=== PATIENT | male | born 1940 | race Caucasian/White ===

== ENCOUNTER → 2016-09-11 | Outpatient (CLI) | payer MEDICARE, OTHER ==
[~2016-09-11] MED LIST: DIABETA 5 MG TAB5 MG PO; GLUCOTROL5 MG PO; LEVOTHYROXINE75 MCG PO; NORCO 10-325 T1 EACH PO; NORVASC 5 MG TAB5 MG PO; OMEPRAZOLE20 MG PO; SIMVASTATIN10 MG PO; ZYRTEC10 M3 PO; [UNRECOGNIZED DRUG - OTHER] PO
[2016-09-11 11:55] LABS: HEMOGLOBIN 12.6 gm/dl (14.0-17.5); RED BLOOD COUNT 4.54 M/UL (4.20-5.50); WHITE BLOOD COUNT 6.5 K/UL (4.5-11.0)
== END ==
LOC: OPSV2 10:29
PROVIDERS: Orthopaedic Surgery
DX: Z01.810 Encounter for preprocedural cardiovascular examination (principal); Z01.812 Encounter for preprocedural laboratory examination; E11.9 Type 2 diabetes mellitus without complications; S63.104A Unspecified dislocation of right thumb, initial encounter
CPT/HCPCS: 36415; 80048; 85025; 93005

== ENCOUNTER → 2016-09-13 | Day surgery (SDC) | payer MEDICARE, OTHER | END | disposition home or self-care (01) | LOC: OR 08:10 | PROVIDERS: Orthopaedic Surgery | PROC: 0RG Upper Joints, Fusion (ICD-10-PCS; principal; 2016-09-13 15:45) | DX: M24.444 Recurrent dislocation, right finger (principal); I10 Essential (primary) hypertension; E11.9 Type 2 diabetes mellitus without complications; E07.9 Disorder of thyroid, unspecified; K21.9 Gastro-esophageal reflux disease without esophagitis; Z79.82 Long term (current) use of aspirin; Z79.891 Long term (current) use of opiate analgesic; Z79.899 Other long term (current) drug therapy; Z87.01 Personal history of pneumonia (recurrent) | CPT/HCPCS: 73140; 76000; 82962; C1713; C1769; J0690; J2250; J3010; J7030; J7120 ==

== ENCOUNTER → 2021-11-23 | Outpatient (CLI) | payer MEDICARE, OTHER | LOC: US 11:00 | DX: N28.1 Cyst of kidney, acquired (principal) ==

== ENCOUNTER 2022-01-19 19:25 | Inpatient (IN) | payer MEDICARE, OTHER ==
[~2022-01-19] VITALS: Ht 170.2 cm; Wt 61.2 kg
[~2022-01-19 19:25] MED LIST changes: +HYDROCODON-ACE1 EAC4 PO; -NORCO 10-325 T1 EACH PO; +SENNA PLUS TAB1 EACH PO; -[UNRECOGNIZED DRUG - OTHER] PO
[2022-01-19 19:48] LABS: HEMOGLOBIN 10.5 gm/dl (14.0-17.5); RED BLOOD COUNT 3.78 M/UL (4.20-5.50); WHITE BLOOD COUNT 10.9 K/UL (4.5-11.0)
[2022-01-20 06:00] LABS: HEMOGLOBIN 8.8 gm/dl (14.0-17.5)
[2022-01-20 06:01] LABS: RED BLOOD COUNT 3.15 M/UL (4.20-5.50)
[2022-01-20] MEDS ORDERED: FINASTERIDE5 MG PO (11:35)
[2022-01-20] MEDS ORDERED: FLOMAX 0.4 MG0.4 MG PO (11:36)
[2022-01-21 07:35] LABS: HEMOGLOBIN 8.8 gm/dl (14.0-17.5); RED BLOOD COUNT 3.3 M/UL (4.20-5.50)
[2022-01-21 07:42] LABS: WHITE BLOOD COUNT 4.5 K/UL (4.5-11.0)
[2022-01-21 07:56] LABS: BUN/CREATININE RATIO 15 (0-10)
[2022-01-22 15:35] LABS: HEMOGLOBIN 9.5 gm/dl (14.0-17.5); RED BLOOD COUNT 3.4 M/UL (4.20-5.50); WHITE BLOOD COUNT 4.8 K/UL (4.5-11.0)
[2022-01-22 16:18] LABS: BUN/CREATININE RATIO 21 (0-10)
[2022-01-23 06:41] LABS: HEMOGLOBIN 9.3 gm/dl (14.0-17.5); RED BLOOD COUNT 3.38 M/UL (4.20-5.50); WHITE BLOOD COUNT 4.4 K/UL (4.5-11.0)
[2022-01-23 07:21] LABS: BUN/CREATININE RATIO 18 (0-10)
[2022-01-24 06:29] LABS: HEMOGLOBIN 9.2 gm/dl (14.0-17.5); RED BLOOD COUNT 3.35 M/UL (4.20-5.50); WHITE BLOOD COUNT 5.4 K/UL (4.5-11.0)
[2022-01-24 07:03] LABS: BUN/CREATININE RATIO 15 (0-10)
[2022-01-25 07:11] LABS: HEMOGLOBIN 9.2 gm/dl (14.0-17.5); RED BLOOD COUNT 3.28 M/UL (4.20-5.50); WHITE BLOOD COUNT 5.4 K/UL (4.5-11.0)
[2022-01-25 07:29] LABS: BUN/CREATININE RATIO 18 (0-10)
[2022-01-26 07:39] LABS: BUN/CREATININE RATIO 23 (0-10)
[2022-01-27 07:23] LABS: BUN/CREATININE RATIO 26 (0-10)
[2022-01-28 05:38] LABS: HEMOGLOBIN 8.9 gm/dl (14.0-17.5); RED BLOOD COUNT 3.18 M/UL (4.20-5.50); WHITE BLOOD COUNT 5.3 K/UL (4.5-11.0)
[2022-01-28 06:04] LABS: BUN/CREATININE RATIO 33 (0-10)
--- NOTE | 2022-01-29 09:20 | NUR ---
PTS OXYGEN IS 96 SATURATION
--- NOTE | 2022-01-29 10:56 | NUR ---
PT'S OXYGEN SATURATION IS 86%
--- NOTE | 2022-01-29 13:33 | NUR ---
[facility] CALLED. [facility]T [facility] CALLED BACK AND PENDING TRANSFER
--- NOTE | 2022-01-29 14:38 | NUR ---
[facility] CALLED TO GIVE REPORT. NO ANSWER, LEFT MESSAGE ON ANSWERING MACHINE. NOT RECEIVED PHONE CALL BACK AT TIME OF PTS DISCHARGE
--- NOTE | 2022-01-29 14:42 | NUR ---
[facility] CALLED (RYAN NURSE). REPORT GIVEN
== END 2022-01-29 14:54 | disposition home health service (06) | DRG 871 ==
LOC: ER1 19:25 → MED SURG 4 22:42 → CDU 22:42 → MED SURG 4 01-20 00:26
PROVIDERS: Internal Medicine; Student in an Organized Health Care Education/Training Program; ADMIT Internal Medicine
DX: A41.9 Sepsis, unspecified organism (principal); G93.41 Metabolic encephalopathy; J18.9 Pneumonia, unspecified organism; J96.01 Acute respiratory failure with hypoxia; N17.9 Acute kidney failure, unspecified; R65.20 Severe sepsis without septic shock; Z20.822 Contact with and (suspected) exposure to COVID-19; E86.0 Dehydration; I12.9 Hypertensive chronic kidney disease with stage 1 through stage 4 chronic kidney disease, or unspecified chronic kidney disease; N40.0 Benign prostatic hyperplasia without lower urinary tract symptoms; E11.649 Type 2 diabetes mellitus with hypoglycemia without coma; R53.81 Other malaise; N18.30 Chronic kidney disease, stage 3 unspecified; R14.0 Abdominal distension (gaseous); E11.22 Type 2 diabetes mellitus with diabetic chronic kidney disease; Z85.72 Personal history of non-Hodgkin lymphomas; Z80.8 Family history of malignant neoplasm of other organs or systems; Z79.899 Other long term (current) drug therapy
CPT/HCPCS: 0240U; 36415; 51702; 71045; 74018; 80048; 80053; 81001; 82962; 83605; 83735; 83880; 84100; 85025; 85027; 85610; 85730; 87040; 87086; 93005; 94760; 96374; 96375; 97110-GP-CQ; 97161; 97166; 97530; 97530-GP-CQ; 99285; J0456; J0696; J1650; J7030; Q9967